=== PATIENT | male | born 1945 | race Caucasian/White ===

== ENCOUNTER → 2016-03-15 | Outpatient (CLI) | payer OTHER ==
[~2016-03-15] MED LIST: ADVAIR 250/501 DISK IH; ALBUTEROL SULF8.5 GM IH; CARDIZEM CD,CA180 MG PO; CARDIZEM CD,CA240 MG PO; COMBIVENT RESPIM4 GM IH; COMBIVENT200 INHALA IH; DILTIAZEM 24HR240 MG PO; ERGOCALCIF50000 UNIT PO; FLOMAX0.4 MG PO; HYDROCHLOROTH12.5 M3 PO; HYDROCHLOROTHIA25 MG PO; LABETALOL HCL300 MG PO; LEVOFLOXACIN750 MG PO; LIPITOR20 MG PO; LIPITOR40 MG PO; LISINOPRIL20 MG PO; NORMODYNE,TRAN300 MG PO; NORVASC10 M1 PO; PERCOCET 5/31 TABLET PO; PRADAXA150 MG PO; PRADAXA75 MG PO; PREDNISONE10 MG PO; PRINIVIL40 MG PO; PROAIR HFA8.5 GM IH; SPIRIVA1 INHALATI IH; VENTOLIN HFA18 GM IH; ZOFRAN4 MG PO
== END | disposition home or self-care (01) ==
LOC: OPR 08:55 → EDSTATUS 09:00
PROC: 0BBG3ZX Excision of Left Upper Lung Lobe, Percutaneous Approach, Diagnostic (ICD-10-PCS; principal; 2016-03-15)
DX: R91.8 Other nonspecific abnormal finding of lung field (principal)
CPT/HCPCS: 71010; 77012; 88305; J3010